=== PATIENT | female | born 1930 | race Caucasian/White ===

== ENCOUNTER 2017-06-26 14:54 | Emergency (ER) | payer OTHER ==
[~2017-06-26] VITALS: Ht 157.5 cm; Wt 54.4 kg
[2017-06-26 15:07] VITALS: BP 150/69
[2017-06-26] MEDS ORDERED: OXYCONTIN10 M1 PO (15:18)
[2017-06-26] MEDS ORDERED: VALTREX1000 MG PO (15:28)
== END 2017-06-26 15:47 | disposition home or self-care (01) ==
LOC: M.ERS 14:54
DX: B02.9 Zoster without complications (principal); M19.90 Unspecified osteoarthritis, unspecified site; I10 Essential (primary) hypertension; Z90.710 Acquired absence of both cervix and uterus